=== PATIENT | male | born 1995 | race Caucasian/White ===

== ENCOUNTER 2016-04-12 15:53 | Emergency (ER) | payer BC ==
[~2016-04-12] VITALS: Ht 175.3 cm; Wt 68.9 kg
[2016-04-12 15:55] VITALS: TEMP 37.1; Ht 175.3 cm; Wt 68.9 kg
[2016-04-12] MEDS ORDERED: SODIUM CHLORIDE 0.9% 1000ML 1,000 ML IV STA (16:06)
[2016-04-12] MEDS ORDERED: PHEN-905 PO (16:19)
[2016-04-12] MEDS ORDERED: IBUP-1050 PO (16:19)
[2016-04-12 17:25] LABS: COMPLETE YES; EOS % 0.2 %; HEMATOCRIT 41.7 % (42-52); IG% 0.2 %; LYMPH % 20.3 %; LYMPH ABS # 1.06 K/uL (1.2-3.4); MEAN CELL VOLUME 83.6 fL (80-100); MEAN CORPUSCULAR HEMOGLOBIN 29.9 pg (25-34); MEAN CORPUSCULAR HGB CONC 35.7 g/dl (32-36); MONO % 10.7 %; NEUT % 68.6 %; PLATELET COUNT 160 K/uL (130-400); RED BLOOD COUNT 4.99 M/uL (4.7-6.1); WHITE BLOOD COUNT 5.21 K/uL (4.8-10.8)
[2016-04-12 17:42] LABS: BUN/CREATININE RATIO 11.1 (10-20); CALCIUM 9.1 mg/dl (8.5-10.1); CREATININE 0.98 mg/dl (0.60-1.40); POTASSIUM 3.9 mmol/L (3.5-5.1)
--- NOTE | 2016-04-12 18:10 | DIAGNOSTIC IMAGING REPORT ---
CHEST 2 VIEWS ROUTINE CLINICAL HISTORY: Cough and congestion. Evaluate for pneumonia. COMPARISON STUDY: No previous studies for comparison. FINDINGS: Lung volumes are normal. Lungs are clear. There is no pneumothorax or pleural effusion. Cardiac size is normal. Mediastinal contours are unremarkable. There is no evidence of pulmonary edema. IMPRESSION: No acute cardiopulmonary findings. Electronically signed by: Teofilo Daily M.D. 04/12/2016 6:08 PM Dictated Date/Time: 04/12/2016 6:05 PM
[2016-04-12] MEDS ORDERED: ACETAMINOPHEN 325 MG TAB PO STA (18:50)
[2016-04-12 19:14] VITALS: BP 131/78; PULSE 88; O2SAT 97
--- NOTE | 2016-04-12 23:17 | EMERGENCY ROOM VISIT NOTE ---
History Report prepared by Siva: Nikki Smith Under the Supervision of: Dr. Aubrey Echevarria M.D. First contact with patient: 15:59 Chief Complaint: ILLNESS Stated Complaint: VOMITING,FEELS LIKE PASSING OUT History of Present Illness The patient is a 20 year old male who presents to the Emergency Room with complaints of constant illness symptoms beginning 5 days prior to arrival. The patient states that this began as a cold with symptoms that consisted of a sore throat, congestion and a cough. He notes that 3 days ago he had episodes of vomiting. The vomiting was only for one day. He denies any nausea currently. The patient also states that in the mornings he feels very lightheaded after waking up. He did have these similar symptoms last year and did have a syncope episode at that time. He did not pass out recently. He also notes a decrease in urinary frequency although he states he's been trying to drink plenty of water. The patient denies diarrhea, abnormal bowel movements, nausea, chest pain , rectal bleeding, shortness of breath or melena. He does state his cough is productive of green sputum. 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 A total of 10 systems reviewed and were otherwise negative. Past Medical & Surgical Medical Problems: (1) Asthma Family History Patient reports no known family medical history. Social History Smoking Status: Never Smoker Marital Status: single Housing Status: lives with roommate Occupation Status: [employer] student Current/Historical Medications Scheduled Ibuprofen (Advil), 600 MG PO DIRECTED Scheduled PRN Nrtehetczjypr-Hcefdbwkpy-Nhflm (Nyquil Severe Cold/Flu 5-6.25-10-325 mg/15Ml), 15 ML PO HS PRN for Cough Allergies Coded Allergies: No Known Allergies (Unverified , 04/12/16) Physical Exam Vital Signs Date Time Temp Pulse Resp B/P Pulse Ox O2 Delivery O2 Flow Rate FiO2 04/12/16 19:14 88 20 131/78 97 04/12/16 18:37 82 20 134/62 99 Room Air 04/12/16 16:47 81 04/12/16 16:08 79 20 126/64 97 79 118/80 84 123/74 04/12/16 15:55 37.1 90 18 138/78 98 Room Air Physical Exam Constitutional: Vital signs reviewed. Eyes: Pupils are equal round reactive to light. Conjunctiva are noninjected. ENT: Pharynx is clear without erythema or exudate. Mucous membranes are slightly dry. Neck supple without meningeal signs. Respiratory: Clear to auscultation bilaterally. Breath sounds are equal bilaterally. Cardiovascular: Regular rate and rhythm. No rubs or gallops. GI: Soft, nondistended and nontender. Bowel sounds are present. Musculoskeletal: No peripheral edema. No lower extremity tenderness. No CVA tenderness. Integumentary: No cyanosis. Neurological: The patient is awake and alert. No focal deficits. Psychiatric: Normal affect. Medical Decision & Procedures ER Provider Diagnostic Interpretation: X-ray results as stated below per interpretation by me and the radiologist: CHEST 2 VIEWS ROUTINE CLINICAL HISTORY: Cough and congestion. Evaluate for pneumonia. COMPARISON STUDY: No previous studies for comparison. FINDINGS: Lung volumes are normal. Lungs are clear. There is no pneumothorax or pleural effusion. Cardiac size is normal. Mediastinal contours are unremarkable. There is no evidence of pulmonary edema. IMPRESSION: No acute cardiopulmonary findings. Electronically signed by: Teofilo Daily M.D. 04/12/2016 6:08 PM Dictated Date/Time: 04/12/2016 6:05 PM Laboratory Results 04/12/16 16:44 Red Blood Count 4.99, Mean Corpuscular Volume 83.6, Mean Corpuscular Hemoglobin 29.9, Mean Corpuscular Hemoglobin Concent 35.7, Mean Platelet Volume 10.0, Neutrophils (%) (Auto) 68.6, Lymphocytes (%) (Auto) 20.3, Monocytes (%) (Auto) 10.7, Eosinophils (%) (Auto) 0.2, Basophils (%) (Auto) 0.0, Neutrophils # (Auto ) 3.57, Lymphocytes # (Auto) 1.06, Monocytes # (Auto) 0.56, Eosinophils # (Auto ) 0.01, Basophils # (Auto) 0.00 04/12/16 16:44 Test 04/12/16 16:44 White Blood Count 5.21 K/uL (4.8-10.8) Red Blood Count 4.99 M/uL (4.7-6.1) Hemoglobin 14.9 g/dL (14.0-18.0) Hematocrit 41.7 % (42-52) Mean Corpuscular Volume 83.6 fL (80-100) Mean Corpuscular Hemoglobin 29.9 pg (25-34) Mean Corpuscular Hemoglobin Concent 35.7 g/dl (32-36) Platelet Count 160 K/uL (130-400) Mean Platelet Volume 10.0 fL (7.4-10.4) Neutrophils (%) (Auto) 68.6 % Lymphocytes (%) (Auto) 20.3 % Monocytes (%) (Auto) 10.7 % Eosinophils (%) (Auto) 0.2 % Basophils (%) (Auto) 0.0 % Neutrophils # (Auto) 3.57 K/uL (1.4-6.5) Lymphocytes # (Auto) 1.06 K/uL (1.2-3.4) Monocytes # (Auto) 0.56 K/uL (0.11-0.59) Eosinophils # (Auto) 0.01 K/uL (0-0.5) Basophils # (Auto) 0.00 K/uL (0-0.2) RDW Standard Deviation 36.8 fL (36.4-46.3) RDW Coefficient of Variation 12.1 % (11.5-14.5) Immature Granulocyte % (Auto) 0.2 % Immature Granulocyte # (Auto) 0.01 K/uL (0.00-0.02) Anion Gap 10.0 mmol/L (3-11) Est Creatinine Clear Calc Drug Dose 118.2 ml/min Estimated GFR () 129.0 Estimated GFR (Non- 111.3 BUN/Creatinine Ratio 11.1 (10-20) Calcium Level 9.1 mg/dl (8.5-10.1) Total Bilirubin 0.6 mg/dl (0.2-1) Direct Bilirubin 0.1 mg/dl (0-0.2) Aspartate Amino Transf (AST/SGOT) 16 U/L (15-37) Alanine Aminotransferase (ALT/SGPT) 17 U/L (12-78) Alkaline Phosphatase 57 U/L (45-117) Total Protein 8.2 gm/dl (6.4-8.2) Albumin 4.0 gm/dl (3.4-5.0) Monoscreen NEG (NEG) Laboratory results as reviewed by me. Medications Administered Medications (Trade) Dose Ordered Sig/Nolan Route Start Time Stop Time Status Last Admin Dose Admin Sodium Chloride (Nss 1000ml) 1,000 ml @ 999 mls/hr Q1H1M STAT IV 04/12/16 16:06 04/12/16 17:06 DC 04/12/16 16:55 999 MLS/HR Acetaminophen (Tylenol Tab) 650 mg NOW STAT PO 04/12/16 18:50 04/12/16 18:51 DC 04/12/16 19:14 650 MG ECG Indication: other (Lightheadedness) Rate (beats per minute): 74 Rhythm: normal sinus Findings: no acute ischemic change, no ectopy ED Course 1600: The patient was evaluated in room B5. A complete history and physical exam was performed. 1606: Sodium Chloride 1,000 ml @ 999 mls/hr IV. 1848: I reevaluated the patient and discussed his test results. He is requesting Tylenol for a headache but otherwise is feeling better. 1850: Tylenol Tab 650 mg PO. 1854: Upon reevaluation, the patient appeared to have improvement of his symptoms. I discussed tonight's findings with him. He verbalized agreement of the treatment plan. He was discharged home. Medical Decision This is a 20-year-old male who presents with cold symptoms and lightheadedness. Differential diagnosis includes URI, viral syndrome, pneumonia, bronchitis, anemia, dehydration. I did perform a limited focused review of portions of the patient's old chart on the electronic medical record. The patient has had no prior visits to this hospital. I did evaluate the patient as noted above. He is presenting with cold symptoms and feeling lightheaded. IV access was established. I did treat patient with normal saline IV. I did order and personally review the patient's 12-lead EKG and chest x-ray as described above. His 12-lead EKG is unremarkable. Chest x-ray does not show pneumonia. I did order and review the patient's blood work as noted in the electronic medical record. He is not anemic. His electrolytes are unremarkable. Monospot is negative. I did reassess the patient. He is feeling better. I did discuss the test results with him. He did complain of a mild headache and was given a dose of Tylenol. He was advised follow with [facility]. He was discharged in good condition. Impression Primary Impression: Dehydration Additional Impression: Viral illness Scribe Attestation The scribe's documentation has been prepared under my direct and personally reviewed by me in its entirety. I confirm that the note above accurately reflects all work, treatment, procedures, and medical decision making performed by me. Departure Information Dispostion Home / Self-Care Referrals [facility] (PCP) Forms HOME CARE DOCUMENTATION FORM, IMPORTANT VISIT INFORMATION, WORK / SCHOOL INSTRUCTIONS Patient Instructions Dehydration, My [facility] Additional Instructions You have been examined and treated today on an emergency basis only. This is not a substitute for, or an effort to provide, complete comprehensive medical care. It is impossible to recognize and treat all injuries or illnesses in a single emergency department visit. It is therefore important that you follow up closely with [facility]. Call as soon as possible for an appointment. Return for worsening symptoms or if you develop fever, vomiting, or any other concerning symptoms. Problem Qualifiers
== END 2016-04-12 19:19 | disposition home or self-care (01) ==
LOC: C.EDB 15:54
DX: B34.9 Viral infection, unspecified (principal); E86.0 Dehydration; J45.909 Unspecified asthma, uncomplicated